=== PATIENT | female | born 1935 | race Caucasian/White ===

== ENCOUNTER 2017-04-30 03:58 | Inpatient (IN) | payer OTHER ==
[~2017-04-30] VITALS: Ht 162.6 cm; Wt 68.9 kg
[2017-04-30 04:01] VITALS: BP_SYST 149
[2017-04-30] MEDS ORDERED: MORPHINE 2 MG/ML INJ. SYRINGE IVP ONE (04:15)
[2017-04-30] MEDS ORDERED: ONDANSETRON HCL 4 MG/2 ML VIAL IVP ONE (04:15)
[2017-04-30 04:27] LABS: HEMATOCRIT 38.6 % (36-48); MEAN CORPUSCULAR HEMOGLOBIN 31 pg (27-31); MEAN CORPUSCULAR HGB CONC 34 % (32-36); MEAN CORPUSCULAR VOLUME 91 fL (79.0-98.0); PLATELET COUNT (AUTO) 278 K/uL (130-430); RED BLOOD CELL COUNT(AUTO) 4.24 MIL/uL (4.2-6.2); RED CELL DISTRIBUTION WIDTH 13.1 % (9.0-15.0); WHITE BLOOD COUNT (AUTO) 21.8 K/uL (4.8-10.8)
[2017-04-30 04:30] LABS: ANION GAP 12 (5-15); CALCIUM 8.9 mg/dL (8.4-11.0); CHLORIDE 101 mmol/L (98-107); GLUCOSE 165 mg/dL (70-99); POTASSIUM 3.9 mmol/L (3.5-5.1); SODIUM SERUM 137 mmol/L (136-145); UREA NITROGEN, BLOOD 20 mg/dL (8-21)
[2017-04-30 04:36] LABS: ALANINE AMINOTRANSFERASE 29 U/L (12-78); ALBUMIN 3.7 g/dL (3.4-4.8); ASPARTATE AMINOTRANSFERASE 32 U/L (10-37); TOTAL BILIRUBIN 1.2 mg/dL (0.0-1.0)
[2017-04-30 04:46] LABS: BAND % (MANUAL) 5 % (0-6); BASOPHILS % (MANUAL) 0 % (0-2); EOSINOPHILS % (MANUAL) 0 % (0-7); LYMPHOCYTES % (MANUAL) 12 % (20-46); MONOCYTES % (MANUAL) 7 % (0-11)
[2017-04-30 05:01] LABS: BILIRUBIN,URINE 1+ (NEGATIVE); CLARITY/URINE HAZY (CLEAR); COLOR,URINE YELLOW (YELLOW); GLUCOSE,URINE NEGATIVE (NEGATIVE); KETONES,URINE 1+ (NEGATIVE); LEUKOCYTE ESTERASE ,URINE TRACE (NEGATIVE); NITRITE, URINE NEGATIVE (NEGATIVE); PROTEIN URINE 1+ (NEGATIVE)
[2017-04-30 05:03] LABS: BLOOD, URINE TRACE (NEGATIVE)
[2017-04-30 05:09] LABS: BACTERIA,URINE MANY /HPF (None Seen); MUCUS,URINE None Seen /LPF (None Seen); RBC,URINE 0-3 /HPF (0-3); WBC,URINE 20-50 /HPF (0-3)
[2017-04-30] MEDS ORDERED: cefTRIAXone 1 GM in D5W 50 ML IV ONE (05:15)
[2017-04-30] MEDS ORDERED: cefTRIAXone 1 GM VIAL ONE (05:38)
[2017-04-30] MEDS ORDERED: AMLO2.5T2 PO (05:59)
[2017-04-30] MEDS ORDERED: ALBUTEROL SULFATE 0.083% 2.5 MG/3 ML VIAL.NEB INH PRN (06:15)
[2017-04-30] MEDS ORDERED: HYDROcodone/ACETAMIN 5-325 MG TAB (NORCO/ VICODIN) PO PRN (06:15)
[2017-04-30] MEDS ORDERED: NACL 0.9% 1,000 ML IV ONE ×2 (06:15)
[2017-04-30 06:44] VITALS: BP_SYST 131
[2017-04-30] MEDS: HYDROcodone/ACETAMIN 10-325 MG TAB PO PRN ×3 (06:44→18:06)
[2017-04-30 08:00] VITALS: BP_SYST 109
[2017-04-30 08:02] VITALS: BP_SYST 131
[2017-04-30] MEDS: amLODIPine BESYLATE 5 MG TABLET PO SCH (09:34)
[2017-04-30] MEDS: PIPERACILLIN/TAZO 3.375/DEX-IS 50 ML IV SCH ×3 (13:35→23:28)
[2017-04-30 15:26] VITALS: BP_SYST 115
[2017-04-30] MEDS: ONDANSETRON HCL 4 MG/2 ML VIAL IVP PRN (15:54)
[2017-04-30 20:00] VITALS: BP_SYST 125
[2017-04-30] MEDS: ACETAMINOPHEN 325 MG TABLET PO PRN (23:31)
[2017-05-01 00:15] VITALS: BP_SYST 134
[2017-05-01] MEDS: HYDROcodone/ACETAMIN 10-325 MG TAB PO PRN ×2 (02:04→08:35)
[2017-05-01] MEDS: PIPERACILLIN/TAZO 3.375/DEX-IS 50 ML IV SCH ×4 (05:23→23:22)
[2017-05-01 08:00] VITALS: BP_SYST 129
[2017-05-01 08:04] LABS: BASOPHILS # (AUTO) 0.3 K/uL (0.0-0.2); BASOPHILS % (AUTO) 1.4 % (0.0-2.0); EOSINOPHILS % (AUTO) 0.1 % (0.0-4.0); HEMATOCRIT 34.9 % (36-48); HEMOGLOBIN 11.4 g/dL (12.0-16.0); LYMPHOCYTES # (AUTO) 1.5 K/uL (1.0-5.5); LYMPHOCYTES % (AUTO) 7.7 % (20.5-51.5); MEAN CORPUSCULAR HEMOGLOBIN 30 pg (27-31); MEAN CORPUSCULAR HGB CONC 33 % (32-36); MEAN CORPUSCULAR VOLUME 91 fL (79.0-98.0); MONOCYTES # (AUTO) 1.8 K/uL (0.0-1.0); MONOCYTES % (AUTO) 9.4 % (1.7-9.3); NEUTROPHILS # (AUTO) 15.8 K/uL (1.8-7.7); NEUTROPHILS % (AUTO) 81.4 % (40.0-70.0); PLATELET COUNT (AUTO) 220 K/uL (130-430); RED BLOOD CELL COUNT(AUTO) 3.83 MIL/uL (4.2-6.2); RED CELL DISTRIBUTION WIDTH 13.4 % (9.0-15.0); WHITE BLOOD COUNT (AUTO) 19.4 K/uL (4.8-10.8)
[2017-05-01 08:13] LABS: ALANINE AMINOTRANSFERASE 22 U/L (12-78); ALBUMIN 2.9 g/dL (3.4-4.8); ANION GAP 9 (5-15); ASPARTATE AMINOTRANSFERASE 18 U/L (10-37); CALCIUM 8.9 mg/dL (8.4-11.0); CHLORIDE 99 mmol/L (98-107); CREATININE 0.91 mg/dL (0.55-1.30); GLUCOSE 130 mg/dL (70-99); POTASSIUM 3.8 mmol/L (3.5-5.1); SODIUM SERUM 134 mmol/L (136-145); TOTAL BILIRUBIN 0.8 mg/dL (0.0-1.0); UREA NITROGEN, BLOOD 29 mg/dL (8-21)
[2017-05-01] MEDS: amLODIPine BESYLATE 5 MG TABLET PO SCH (08:34)
[2017-05-01] MEDS: ONDANSETRON HCL 4 MG/2 ML VIAL IVP PRN (11:17)
[2017-05-01 12:36] VITALS: BP_SYST 106
[2017-05-01 16:09] VITALS: BP_SYST 123
[2017-05-01] MEDS: ACETAMINOPHEN 325 MG TABLET PO PRN (17:15)
[2017-05-01] MEDS ORDERED: GENTAMICIN 100 mg/50 mL NS 50 ML IV ONE (18:00)
[2017-05-01 20:00] VITALS: BP_SYST 122
[2017-05-01 23:04] VITALS: BP_SYST 118
[2017-05-02] MEDS: PIPERACILLIN/TAZO 3.375/DEX-IS 50 ML IV SCH ×3 (05:25→18:21)
[2017-05-02 08:38] VITALS: BP_SYST 143
[2017-05-02] MEDS: amLODIPine BESYLATE 5 MG TABLET PO SCH (09:04)
[2017-05-02] MEDS: ACETAMINOPHEN 325 MG TABLET PO PRN ×2 (10:21→18:22)
[2017-05-02 11:24] VITALS: BP_SYST 139
[2017-05-02 11:42] LABS: BASOPHILS # (AUTO) 0.2 K/uL (0.0-0.2); BASOPHILS % (AUTO) 1.4 % (0.0-2.0); EOSINOPHILS # (AUTO) 0.1 K/uL (0.0-0.4); EOSINOPHILS % (AUTO) 0.4 % (0.0-4.0); HEMATOCRIT 34.5 % (36-48); HEMOGLOBIN 11.6 g/dL (12.0-16.0); LYMPHOCYTES % (AUTO) 6.1 % (20.5-51.5); MEAN CORPUSCULAR HEMOGLOBIN 31 pg (27-31); MEAN CORPUSCULAR HGB CONC 34 % (32-36); MEAN CORPUSCULAR VOLUME 91 fL (79.0-98.0); MONOCYTES # (AUTO) 1.7 K/uL (0.0-1.0); MONOCYTES % (AUTO) 9.9 % (1.7-9.3); NEUTROPHILS # (AUTO) 13.7 K/uL (1.8-7.7); NEUTROPHILS % (AUTO) 82.2 % (40.0-70.0); PLATELET COUNT (AUTO) 264 K/uL (130-430); RED BLOOD CELL COUNT(AUTO) 3.79 MIL/uL (4.2-6.2); RED CELL DISTRIBUTION WIDTH 12.8 % (9.0-15.0); WHITE BLOOD COUNT (AUTO) 16.7 K/uL (4.8-10.8)
[2017-05-02] MEDS: IPRATROPIUM BROM 0.5 MG/2.5 ML VIAL.NEB (ATROVENT) INH SCH ×2 (13:57→19:54)
[2017-05-02] MEDS: ALBUTEROL SULFATE 0.083% 2.5 MG/3 ML VIAL.NEB INH SCH ×2 (13:57→19:54)
[2017-05-02 15:40] VITALS: BP_SYST 147
[2017-05-02 20:43] VITALS: BP_SYST 123
[2017-05-03] VITALS (7 sets, daily range): BP systolic 114–152
[2017-05-03] MEDS: PIPERACILLIN/TAZO 3.375/DEX-IS 50 ML IV SCH ×5 (00:04→23:44)
[2017-05-03] MEDS: ALBUTEROL SULFATE 0.083% 2.5 MG/3 ML VIAL.NEB INH SCH ×4 (01:59→19:32)
[2017-05-03] MEDS: IPRATROPIUM BROM 0.5 MG/2.5 ML VIAL.NEB (ATROVENT) INH SCH ×4 (01:59→19:32)
[2017-05-03] MEDS: ACETAMINOPHEN 325 MG TABLET PO PRN ×4 (05:41→23:43)
[2017-05-03 06:05] LABS: BASOPHILS % (AUTO) 0.3 % (0.0-2.0); EOSINOPHILS # (AUTO) 0.2 K/uL (0.0-0.4); EOSINOPHILS % (AUTO) 1.3 % (0.0-4.0); HEMATOCRIT 33.5 % (36-48); HEMOGLOBIN 11.2 g/dL (12.0-16.0); LYMPHOCYTES # (AUTO) 1.3 K/uL (1.0-5.5); LYMPHOCYTES % (AUTO) 9.3 % (20.5-51.5); MEAN CORPUSCULAR HEMOGLOBIN 30 pg (27-31); MEAN CORPUSCULAR HGB CONC 34 % (32-36); MEAN CORPUSCULAR VOLUME 91 fL (79.0-98.0); MONOCYTES # (AUTO) 1.8 K/uL (0.0-1.0); MONOCYTES % (AUTO) 13.2 % (1.7-9.3); NEUTROPHILS # (AUTO) 10.5 K/uL (1.8-7.7); NEUTROPHILS % (AUTO) 75.9 % (40.0-70.0); PLATELET COUNT (AUTO) 262 K/uL (130-430); RED BLOOD CELL COUNT(AUTO) 3.69 MIL/uL (4.2-6.2); RED CELL DISTRIBUTION WIDTH 13.1 % (9.0-15.0); WHITE BLOOD COUNT (AUTO) 13.8 K/uL (4.8-10.8)
[2017-05-03 06:08] LABS: ALANINE AMINOTRANSFERASE 19 U/L (12-78); ALBUMIN 2.2 g/dL (3.4-4.8); ANION GAP 2 (5-15); ASPARTATE AMINOTRANSFERASE 17 U/L (10-37); CALCIUM 8.8 mg/dL (8.4-11.0); CHLORIDE 101 mmol/L (98-107); CREATININE 0.67 mg/dL (0.55-1.30); GLUCOSE 106 mg/dL (70-99); POTASSIUM 3.2 mmol/L (3.5-5.1); SODIUM SERUM 135 mmol/L (136-145); TOTAL BILIRUBIN 0.6 mg/dL (0.0-1.0); UREA NITROGEN, BLOOD 11 mg/dL (8-21)
[2017-05-03] MEDS: amLODIPine BESYLATE 5 MG TABLET PO SCH (08:58)
[2017-05-03] MEDS ORDERED: METH4TAB3 PO (11:05)
[2017-05-03] MEDS ORDERED: AMOX-426 PO (11:05)
[2017-05-03] MEDS ORDERED: ALBU8.5H8 INH (11:07)
[2017-05-04] MEDS: IPRATROPIUM BROM 0.5 MG/2.5 ML VIAL.NEB (ATROVENT) INH SCH ×2 (01:50→07:00)
[2017-05-04] MEDS: ALBUTEROL SULFATE 0.083% 2.5 MG/3 ML VIAL.NEB INH SCH ×3 (01:50→11:34)
[2017-05-04] MEDS: PIPERACILLIN/TAZO 3.375/DEX-IS 50 ML IV SCH (06:23)
[2017-05-04 06:27] VITALS: BP_SYST 146
[2017-05-04] MEDS: ACETAMINOPHEN 325 MG TABLET PO PRN (06:31)
[2017-05-04 07:45] VITALS: BP_SYST 143
[2017-05-04] MEDS: amLODIPine BESYLATE 5 MG TABLET PO SCH (08:52)
[2017-05-04 08:53] LABS: BASOPHILS # (AUTO) 0.1 K/uL (0.0-0.2); BASOPHILS % (AUTO) 1.1 % (0.0-2.0); EOSINOPHILS # (AUTO) 0.3 K/uL (0.0-0.4); EOSINOPHILS % (AUTO) 2.6 % (0.0-4.0); HEMATOCRIT 36.7 % (36-48); HEMOGLOBIN 12.2 g/dL (12.0-16.0); LYMPHOCYTES # (AUTO) 1.4 K/uL (1.0-5.5); LYMPHOCYTES % (AUTO) 11.9 % (20.5-51.5); MEAN CORPUSCULAR HEMOGLOBIN 30 pg (27-31); MEAN CORPUSCULAR HGB CONC 33 % (32-36); MEAN CORPUSCULAR VOLUME 91 fL (79.0-98.0); MONOCYTES # (AUTO) 1.8 K/uL (0.0-1.0); MONOCYTES % (AUTO) 14.8 % (1.7-9.3); NEUTROPHILS # (AUTO) 8.5 K/uL (1.8-7.7); PLATELET COUNT (AUTO) 383 K/uL (130-430); RED BLOOD CELL COUNT(AUTO) 4.06 MIL/uL (4.2-6.2); RED CELL DISTRIBUTION WIDTH 13.4 % (9.0-15.0); WHITE BLOOD COUNT (AUTO) 12.1 K/uL (4.8-10.8)
[2017-05-04] MEDS ORDERED: ALBMDI INH (11:12)
[2017-05-04] MEDS ORDERED: METH4TAB3 PO (11:12)
[2017-05-04] MEDS ORDERED: AMOX-426 PO (11:12)
[2017-05-04 11:18] LABS: NEUTROPHILS % (AUTO) 69.6 % (40.0-70.0)
[2017-05-04 11:30] VITALS: BP_SYST 143
== END 2017-05-04 11:55 | disposition home or self-care (01) | DRG 871 ==
LOC: SED 03:58 → SMU 06:06 → OBSVTOIN 09:23
PROVIDERS: ADMIT Internal Medicine; ATTEND Internal Medicine
DX: A41.9 Sepsis, unspecified organism (principal); J18.1 Lobar pneumonia, unspecified organism; J90 Pleural effusion, not elsewhere classified; J44.0 Chronic obstructive pulmonary disease with (acute) lower respiratory infection; N12 Tubulo-interstitial nephritis, not specified as acute or chronic; I10 Essential (primary) hypertension; B96.89 Other specified bacterial agents as the cause of diseases classified elsewhere; K59.00 Constipation, unspecified; M41.9 Scoliosis, unspecified; B96.20 Unspecified Escherichia coli [E. coli] as the cause of diseases classified elsewhere
CPT/HCPCS: 36415; 71045; 72110; 76700-TC; 76770; 80053; 81000-TC; 83605; 85007; 85025; 85027; 87040-TC; 87086; 87186-TC; 94640; 96361; 96374; 96375; 99285; G0378; J0696; J1580; J2270; J2405; J2543; J7030; J7050

== ENCOUNTER 2020-05-29 16:14 | Emergency (ER) | payer OTHER ==
[~2020-05-29] VITALS: Ht 162.6 cm; Wt 71.2 kg
[~2020-05-29 16:14] MED LIST: ALBMDI INH; ALBU8.5H8 INH; AMLO2.5T2 PO; AMOX-426 PO; METH4TAB3 PO
[2020-05-29 16:26] VITALS: BP_SYST 148
[2020-05-29] MEDS ORDERED: LIDOCAINE 1%, 20 ML MDV 20 ML ONE (17:31)
[2020-05-29] MEDS ORDERED: TRAM50TA2 PO (17:34)
[2020-05-29] MEDS ORDERED: BACITRACIN 1 GM OINT TP ONE (17:55)
[2020-05-29] MEDS ORDERED: DIPH-TET-PERTUS Vaccine 0.5 ML VIAL (ADACEL) I.M. ONE (18:15)
[2020-05-29 18:35] VITALS: BP_SYST 119
== END 2020-05-29 18:23 | disposition home or self-care (01) ==
LOC: SED 16:14
DX: S62.637B Displaced fracture of distal phalanx of left little finger, initial encounter for open fracture (principal); J45.909 Unspecified asthma, uncomplicated; Z79.899 Other long term (current) drug therapy; W18.39XA Other fall on same level, initial encounter; Y93.89 Activity, other specified; Y92.89 Other specified places as the place of occurrence of the external cause; Y99.8 Other external cause status
CPT/HCPCS: 12002; 73140; 90471; 90715; 99283; J2001

== ENCOUNTER 2021-06-30 08:48 | Emergency (ER) | payer OTHER ==
[~2021-06-30] VITALS: Ht 162.6 cm; Wt 68.0 kg
[~2021-06-30 08:48] MED LIST changes: +TRAM50TA2 PO
[2021-06-30 08:52] VITALS: BP_SYST 145
--- NOTE | 2021-06-30 08:52 | NUR ---
Patient to ER bed 1 for evaluation. Side rails up. Report given to Donis MCCRACKEN.
--- NOTE | 2021-06-30 09:07 | NUR ---
Pt present to ED with complaint of skin tear to RUE. Pt states that she was playing golf when she got hit by a golf ball. Wound cleaned with NS and dressing applied. pending XR. Will continue to monitor pt
--- NOTE | 2021-06-30 09:08 | NUR ---
ED physician at bedside assessing pt
--- NOTE | 2021-06-30 09:20 | NUR ---
[place] of care received, Pt A&Ox4, avulsion noted on R forearm ,bleeding controlled , skin pink and warm, cap refill <3.
[2021-06-30] MEDS ORDERED: BACITRACIN 1 GM OINT TP ONE (09:45)
[2021-06-30] MEDS ORDERED: LIDOCAINE/EPI 1% 1:100000 20 ML VIAL INJ ONE (10:25)
[2021-06-30] MEDS ORDERED: SULF1TAB47 PO (10:27)
--- NOTE | 2021-06-30 10:45 | NUR ---
Dr Alexandre at bedside for LAC repair on RFA
[2021-06-30 11:26] VITALS: BP_SYST 142
--- NOTE | 2021-06-30 11:28 | NUR ---
Patient given written and verbal discharge instructions and verbalizes understanding. ER MD discussed with patient the results and treatment provided. Patient in stable condition. ID arm band removed. Rx of Bactrim given. Patient educated on pain management and to follow up with PMD. Pain Scale 2/10 tolerable for patient . Opportunity for questions provided and answered. Medication side effect fact sheet provided.
== END 2021-06-30 11:28 | disposition home or self-care (01) ==
LOC: SED 08:48
DX: S51.811A Laceration without foreign body of right forearm, initial encounter (principal); J45.909 Unspecified asthma, uncomplicated; I10 Essential (primary) hypertension; W21.04XA Struck by golf ball, initial encounter; Y93.53 Activity, golf; Y92.89 Other specified places as the place of occurrence of the external cause; Y99.8 Other external cause status
CPT/HCPCS: 73090; 99283; 99284